=== PATIENT | male | born 1960 | race Caucasian/White ===

== ENCOUNTER 2020-05-04 16:36 | Emergency (ER) | payer SELFPAY ==
[2020-05-04] MEDS ORDERED: Octyl 2-Cyanoacrylate 1 Tube TOP ONE (17:21)
--- NOTE | 2020-05-04 17:32 | EDM.PDOC ---
ED HPI GENERAL MEDICAL PROBLEM - General Chief Complaint: Laceration Stated Complaint: FOREHEAD LACERATION Time Seen by Provider: 05/04/20 16:50 Source of Information: Reports: Patient History Limitations: Reports: No Limitations - History of Present Illness INITIAL COMMENTS - FREE TEXT/NARRATIVE: Patient is a 59-year-old male who presents today for. Patient states he turned and hit his head on a beam that was hanging. Patient states that he has some bleeding and one of his friends applied superglue to his head to stop the cut. Patient has concerned there would be a scar with a superglue so presented today to have it evaluated. Patient not any LOC headache nausea vomiting vision changes or other complaints. - Related Data Allergies Allergy/AdvReac Type Severity Reaction Status Date / Time No Known Allergies Allergy Verified 05/04/20 16:48 Home Meds: Home Meds . [No Known Home Meds] 05/04/20 [History] Past Medical History - Past Health History Medical/Surgical History: Denies Medical/Surgical History - Infectious Disease History Infectious Disease History: Reports: Chicken Pox Social & Family History - Family History Family Medical History: No Pertinent Family History - Caffeine Use Caffeine Use: Reports: Coffee - Recreational Drug Use Recreational Drug Use: No ED ROS GENERAL - Review of Systems Review Of Systems: See Below Constitutional: Reports: No Symptoms HEENT: Reports: No Symptoms Respiratory: Reports: No Symptoms Cardiovascular: Reports: No Symptoms Endocrine: Reports: No Symptoms GI/Abdominal: Reports: No Symptoms : Reports: No Symptoms Musculoskeletal: Reports: No Symptoms Skin: Reports: Wound Neurological: Reports: No Symptoms Psychiatric: Reports: No Symptoms Hematologic/Lymphatic: Reports: No Symptoms Immunologic: Reports: No Symptoms ED EXAM, SKIN/RASH Exam: See Below Exam Limited By: No Limitations General Appearance: Alert, WD/WN Eye Exam: Bilateral Eye: EOMI, PERRL Head: Other (linear laceration to forehead ) Neck: Normal Inspection, Non-Tender Neurological: Alert, Oriented, CN II-XII Intact, Normal Cognition, Normal Gait ED SKIN PROCEDURES - Laceration/Wound Repair Face Appearance: Superficial Skin Prep: Saline Closed with: Dermabond Lac/Wound length In cm: 5 Course - Vital Signs Last Recorded V/S: Last Vital Signs Temp 97.4 F 05/04/20 16:49 Pulse 55 L 05/04/20 16:49 Resp 18 05/04/20 16:49 BP 142/97 H 05/04/20 16:49 Pulse Ox 97 05/04/20 16:49 - Orders/Labs/Meds Meds: Medications Discontinued Medications Generic Name Dose Route Start Last Admin Trade Name Fazal PRN Reason Stop Dose Admin Octyl Cyanoacrylate 1 applic 05/04/20 17:21 05/04/20 17:26 Dermabond Advance TOP 05/04/20 17:22 1 applic ONETIME ONE Administration Departure - Departure Time of Disposition: 17:41 Disposition: Home, Self-Care 01 Condition: Good Clinical Impression: Laceration of head - Discharge Information *PRESCRIPTION DRUG MONITORING PROGRAM REVIEWED*: Not Applicable *COPY OF PRESCRIPTION DRUG MONITORING REPORT IN PATIENT LAURIE: Not Applicable Instructions: Nonsutured Laceration Care Referrals: PCP,None [Primary Care Provider] - Forms: ED Department Discharge Additional Instructions: The following information is given to patients seen in the emergency department who are being discharged to home. This information is to outline your options for follow-up care. We provide all patients seen in our emergency department with a follow-up referral. The need for follow-up, as well as the timing and circumstances, are variable depending upon the specifics of your emergency department visit. If you don't have a primary care physician on staff, we will provide you with a referral. We always advise you to contact your personal physician following an emergency department visit to inform them of the circumstance of the visit and for follow-up with them and/or the need for any referrals to a consulting specialist. The emergency department will also refer you to a specialist when appropriate. This referral assures that you have the opportunity for follow-up care with a specialist. All of these measure are taken in an effort to provide you with optimal care, which includes your follow-up. Under all circumstances we always encourage you to contact your private physician who remains a resource for coordinating your care. When calling for follow-up care, please make the office aware that this follow-up is from your recent emergency room visit. If for any reason you are refused follow-up, please contact the [facility] Emergency Department at and asked to speak to the emergency department charge nurse. Please follow up with your primary care physician. If you do not have a primary care physician, see below: [facility] [address] [place] [address] [facility] [address] [place] [address] Primary care physician if you start having redness or drainage from the hip wound please return to the ED. Sepsis Event Note (ED) - Evaluation Sepsis Screening Result: No Definite Risk - Focused Exam Vital Signs: Vital Signs Temp Pulse Resp BP Pulse Ox 05/04/20 16:49 97.4 F 55 L 18 142/97 H 97 - Assessment/Plan Admission H&P: Please use this note as an admission H&P Assessment:: Patient is a 59-year-old male presents today for laceration to his forehead. Patient bumped his head on a beam. Patient friend had superglue it. We remove the superglue there is a linear laceration that was repaired here with Dermabond.
== END 2020-05-04 18:05 | disposition home or self-care (01) ==
LOC: MW.ED 16:36
DX: S01.81XA Laceration without foreign body of other part of head, initial encounter (principal); W22.8XXA Striking against or struck by other objects, initial encounter
CPT/HCPCS: 12013; 99282; A9270

== ENCOUNTER 2020-05-09 16:41 | Emergency (ER) | payer MEDICAID ==
--- NOTE | 2020-05-09 17:59 | EDM.PDOC ---
ED HPI GENERAL MEDICAL PROBLEM - General Chief Complaint: General Stated Complaint: POSSIBLE INFECTION RIGHT HAND Time Seen by Provider: 05/09/20 16:48 Source of Information: Reports: Patient, Old Records History Limitations: Reports: No Limitations - History of Present Illness INITIAL COMMENTS - FREE TEXT/NARRATIVE: This is a very pleasant 59-year-old male with no past medical history presenting for reevaluation of some wounds. He was seen in our emergency department on May 04 after accidentally striking his head on a metal garter. He had a forehead laceration repaired with Dermabond. He is requesting reevaluation of this to make sure it is healing normally. He also has a laceration over the dorsal surface of the DIP joint of the right index finger. He states that he initially had a superficial cut and a scab and he has been picking at this over the past week or so and is concerned that it may be infected. Denies any fever, chills, nausea, vomiting, or leakage of fluid from the forehead laceration or the right index finger laceration. Past medical history: Reviewed, no additional pertinent history. Surgical history: Reviewed in system, no additional pertinent history. Social history: Reviewed in system, no additional pertinent history. Family history: Reviewed in system, no additional pertinent history. PHYSICAL EXAM Vital signs reviewed. Nursing notes reviewed. Constitutional: Awake, alert, non-distressed. Head: Patient has a linear laceration over the left side of the forehead with Dermabond in place. This appears clean and appears to be healing normally, there is no surrounding erythema and no drainage noted. No active evidence of infection from what I can tell. Eyes: EOMI, conjunctiva normal, no discharge, no scleral icterus. Ears, Nose, Throat: External ears and nose normal, moist oral mucosa. Cardiovascular: 2+ radial pulse, capillary refill less than 2 seconds. Pulmonary: normal work of breathing, no accessory muscle use. Abdomen/GI: Soft, nontender, nondistended, no guarding or rigidity, no masses. Musculoskeletal: No deformities. There is an approximately 1 cm stellate laceration over the dorsal surface of the DIP of the right index finger with some scabbing noted. I did not note any drainage, the wound is dry, there is no associated swelling or erythema to suggest cellulitis and I note no fluctuance. Integumentary: Appropriate color for ethnicity, warm, dry, no pallor or jaundice, no rash. Neurologic: Alert, answering questions appropriately, normal speech, no facial droop, moving all extremities well. Psychiatric: Appropriate mood and affect, normal thought process. This patient was seen and evaluated during the 2019 SARS-CoV-2 novel coronavirus pandemic period. Community viral transmission is ongoing at time of this encounter and the emergency department is operating under pandemic response procedures. Right Finger-Index Pain Score (Numeric/FACES): 3 - Related Data Allergies Allergy/AdvReac Type Severity Reaction Status Date / Time No Known Allergies Allergy Verified 05/09/20 17:05 Home Meds: Home Meds . [No Known Home Meds] 05/04/20 [History] Past Medical History - Past Health History Medical/Surgical History: Denies Medical/Surgical History - Infectious Disease History Infectious Disease History: Reports: Chicken Pox Social & Family History - Family History Family Medical History: No Pertinent Family History - Tobacco Use Packs/Tins Daily: 0.5 - Caffeine Use Caffeine Use: Reports: None - Recreational Drug Use Recreational Drug Use: No ED ROS GENERAL - Review of Systems Review Of Systems: See Below ED EXAM, GENERAL - Physical Exam Exam: See Below Course - Vital Signs Text/Narrative:: 59-year-old male presenting for reevaluation of a forehead laceration and a subacute right index finger laceration. These both appear clean, I do not note any evidence of cellulitis or any drainage of fluid, both of the wounds are dry. The forehead laceration seems to be well protected with the pre-existing Dermabond. I did examine the laceration on the right index finger, this is been there for at least 1 week. There is scabbing noted. I did not note any active signs of infection. We discussed covering it with adhesive bandages and applying topical antibiotic ointment 2 times daily, I did offer to place an aluminum finger splint to help protect and promote healing, the patient declined and states that he we will obtain one on his own from the pharmacy. At this point I do not see an indication for oral antibiotics, the patient does not seem to have cellulitis associated with either of these wounds. He is stable to discharge home with outpatient primary care follow-up. Plan: Patient is stable to discharge home with outpatient primary care clinic follow-up. Strict emergency department return precautions were provided, patient indicated understanding. All questions were answered prior to de parture. Discharged in good condition. Last Recorded V/S: Last Vital Signs Temp 37.1 C 05/09/20 16:49 Pulse 60 05/09/20 16:49 Resp 18 05/09/20 16:49 BP 152/82 H 05/09/20 16:49 Pulse Ox 97 05/09/20 16:49 Departure - Departure Time of Disposition: 18:00 Disposition: Home, Self-Care 01 Condition: Good Clinical Impression: Forehead laceration Qualifiers: Encounter type: subsequent encounter Qualified Code(s): S01.81XD - Laceration without foreign body of other part of head, subsequent encounter Laceration of right index finger Qualifiers: Encounter type: initial encounter Damage to nail status: without damage Foreign body presence: unspecified Qualified Code(s): S61.210A - Laceration without foreign body of right index finger without damage to nail, initial encounter - Discharge Information *PRESCRIPTION DRUG MONITORING PROGRAM REVIEWED*: Not Applicable *COPY OF PRESCRIPTION DRUG MONITORING REPORT IN PATIENT LAURIE: Not Applicable Instructions: Laceration Care, Adult, Nonsutured Laceration Care Referrals: [facility] [Provider Group] - 1 Week (For follow-up of your wounds.) Additional Instructions: Apply [id number] triple antibiotic ointment 2 times daily to your finger wound and cover it with an adhesive bandage. I also recommend an aluminum finger splint to keep the finger straight and prevent it from bending. We did offer this in the emergency department, which you declined. Your forehead laceration seems to be healing normally. I see no evidence of infection to either wound. Warning signs to come back to the ER include: Fever, chills, leakage of fluid from either wound, worsening redness or swelling, or any other new or concerning symptoms. Please return the emergency department immediately if your symptoms worsen or if you feel worse. Thank you for choosing the [facility] emergency department in [place] for your medical needs today. It was a pleasure caring for you. The following information is given to patients seen in the emergency department who are being discharged. This information is to outline your options for follow-up care. We provide all patients seen in our emergency department with a follow-up referral. The need for follow-up, as well as the timing and circumstances, are variable depending upon the specifics of your emergency department visit. If you don't have a primary care physician on staff, we will provide you with a referral. We always advise you to contact your personal physician following an emergency department visit to inform them of the circumstance of the visit and for follow-up with them and/or the need for any referrals to a consulting specialist. The emergency department will also refer you to a specialist when appropriate. This referral assures that you have the opportunity for follow-up care with a specialist. All of these measure are taken in an effort to provide you with optimal care, which includes your follow-up. Under all circumstances we always encourage you to contact your private physician who remains a resource for coordinating your care. When calling for follow-up care, please make the office aware that this follow-up is from your recent emergency room visit. If for any reason you are refused follow-up, please contact the [facility] Emergency Department at and asked to speak to the emergency department charge nurse. If you do not have a primary care physician that is caring for you, you can contact these clinics below to set up an appointment to establish care: [facility] - Primary Care [address] [place] [id number] [address] [address] Sepsis Event Note (ED) - Evaluation Sepsis Screening Result: No Definite Risk - Focused Exam Vital Signs: Vital Signs Temp Pulse Resp BP Pulse Ox 12/28/20 16:49 37.1 C 60 18 152/82 H 97
== END 2020-05-09 18:05 | disposition home or self-care (01) ==
LOC: MW.ED 16:41
DX: S61.210A Laceration without foreign body of right index finger without damage to nail, initial encounter (principal); S01.81XD Laceration without foreign body of other part of head, subsequent encounter; F17.210 Nicotine dependence, cigarettes, uncomplicated; W26.8XXA Contact with other sharp object(s), not elsewhere classified, initial encounter
CPT/HCPCS: 99282